=== PATIENT | male | born 1935 | race Two or more races ===

== ENCOUNTER 2024-05-14 13:46 | Inpatient (IN) | payer MEDICAID ==
[~2024-05-14] VITALS: Ht 170.2 cm; Wt 66.4 kg
[2024-05-14] MEDS ORDERED: ONDANSETRON HCL/PF 4 MG/2 ML VIAL ONE (14:39)
[2024-05-14] MEDS ORDERED: PANTOPRAZOLE 40 MG VIAL ONE (14:39)
[2024-05-14] MEDS: PANTOPRAZOLE 40 MG VIAL IV ONE (14:41)
[2024-05-14] MEDS: ONDANSETRON HCL/PF 4 MG/2 ML VIAL IVP ONE (14:53)
[2024-05-14 15:18] LABS: BASOPHILS % (AUTO) 0.4 % (0.0-2.0); EOSINOPHILS % (AUTO) 0.2 % (0.0-6.0); HEMATOCRIT 41 % (39-51); HEMOGLOBIN 13.6 g/dL (13.5-17.5); LYMPHOCYTES # (AUTO) 0.5 K/uL (0.8-4.8); LYMPHOCYTES % (AUTO) 5.4 % (20.0-44.0); MEAN CORPUSCULAR HEMOGLOBIN 32 PG (26.0-33.0); MEAN CORPUSCULAR HGB CONC 33 g/dl (31.0-36.0); MEAN CORPUSCULAR VOLUME 96 fL (80-96); MONOCYTES # (AUTO) 0.7 K/uL (0.1-1.30); MONOCYTES % (AUTO) 7.2 % (2.0-12.0); NEUTROPHILS # (AUTO) 8.6 K/uL (1.8-8.9); NEUTROPHILS % (AUTO) 86.8 % (43.0-81.0); PLATELET COUNT (AUTO) 168 K/uL (150-450); RED BLOOD CELL COUNT(AUTO) 4.29 MIL/uL (4.5-6.0); RED CELL DISTRIBUTION WIDTH 15.4 % (11.5-15.0); WHITE BLOOD COUNT (AUTO) 9.9 K/uL (4.3-11.0)
[2024-05-14 15:21] LABS: SERUM AMMONIA 8 umol/L (11-32)
[2024-05-14 15:33] LABS: INR 1.56 (0.91-1.10); PROTHROMBIN TIME 15.8 SECS (9.2-11.1)
[2024-05-14 15:35] LABS: CALCIUM, SERUM 8.6 mg/dL (8.5-10.1); CARBON DIOXIDE 27 mmol/L (21-32); CHLORIDE 101 mmol/L (98-107); CREATININE 1.6 mg/dL (0.6-1.3); GLUCOSE 118 mg/dL (74-106); POTASSIUM 4.1 mmol/L (3.5-5.1); SODIUM SERUM 136 mmol/L (136-145); UREA NITROGEN, BLOOD 26 mg/dL (7-18)
[2024-05-14 15:48] LABS: ALANINE AMINOTRANSFERASE 18 U/L (12-78); ALKALINE PHOSPHATASE 80 U/L (46-116); ASPARTATE AMINOTRANSFERASE 24 U/L (15-37); BILIRUBIN,DIRECT 0.5 mg/dL (0.0-0.2); BILIRUBIN,TOTAL 1.2 mg/dL (0.2-1.0); LIPASE 53 U/L (16-77); NT-PRO BNP 11262 pg/mL (0-125)
[2024-05-14 17:14] VITALS: BP_SYST 112; BP_SYST 150; BP_DIAS 76; TEMP 98; O2SAT 96
[2024-05-14] MEDS ORDERED: CLOP75TA15 PO (17:26)
[2024-05-14] MEDS ORDERED: ATOR20TA PO (17:26)
[2024-05-14] MEDS ORDERED: AMLO1TAB PO (17:26)
[2024-05-14] MEDS ORDERED: IRBESARTAN/HCTZ PO (17:26)
[2024-05-14] MEDS ORDERED: RIVA15TA PO (17:26)
[2024-05-14] MEDS ORDERED: ESOM40CA PO (17:26)
[2024-05-14] MEDS: FUROSEMIDE 40 MG/4 ML VIAL IV SCH (18:39)
[2024-05-14] MEDS ORDERED: DEXTROSE 50%-WATER 50 ML DISP.SYRIN IV PRN (20:00)
[2024-05-14 20:03] VITALS: BP 99/66; TEMP 98.4; O2SAT 97
[2024-05-14] MEDS: BLOOD SUGAR DIAGNOSTIC 1 EACH STRIP VI SCH (21:58)
[2024-05-14] MEDS: *INSULIN REGULAR(HUMULIN R)HUM 100 UNIT/ML VIAL SQ PRN (22:04)
[2024-05-15 00:07] VITALS: BP 108/68; TEMP 98.1; O2SAT 98
[2024-05-15 04:01] VITALS: BP 115/77; TEMP 98; O2SAT 98
[2024-05-15 06:56] LABS: BASOPHILS % (AUTO) 0.2 % (0.0-2.0); EOSINOPHILS # (AUTO) 0.1 K/uL (0.0-0.7); EOSINOPHILS % (AUTO) 1.1 % (0.0-6.0); HEMATOCRIT 38 % (39-51); LYMPHOCYTES # (AUTO) 0.5 K/uL (0.8-4.8); LYMPHOCYTES % (AUTO) 6.6 % (20.0-44.0); MEAN CORPUSCULAR HEMOGLOBIN 31 PG (26.0-33.0); MEAN CORPUSCULAR HGB CONC 34 g/dl (31.0-36.0); MEAN CORPUSCULAR VOLUME 92 fL (80-96); MONOCYTES # (AUTO) 0.6 K/uL (0.1-1.30); MONOCYTES % (AUTO) 7.8 % (2.0-12.0); NEUTROPHILS # (AUTO) 6.7 K/uL (1.8-8.9); NEUTROPHILS % (AUTO) 84.3 % (43.0-81.0); PLATELET COUNT (AUTO) 167 K/uL (150-450); RED BLOOD CELL COUNT(AUTO) 4.17 MIL/uL (4.5-6.0); RED CELL DISTRIBUTION WIDTH 15.3 % (11.5-15.0); WHITE BLOOD COUNT (AUTO) 7.9 K/uL (4.3-11.0)
[2024-05-15 07:04] LABS: CALCIUM, SERUM 8.9 mg/dL (8.5-10.1); CARBON DIOXIDE 29 mmol/L (21-32); CHLORIDE 101 mmol/L (98-107); CREATININE 1.5 mg/dL (0.6-1.3); GLUCOSE 147 mg/dL (74-106); PHOSPHORUS 3.7 mg/dL (2.5-4.9); POTASSIUM 3.9 mmol/L (3.5-5.1); SODIUM SERUM 138 mmol/L (136-145); UREA NITROGEN, BLOOD 29 mg/dL (7-18)
[2024-05-15 08:00] VITALS: BP 109/82; TEMP 97.7; O2SAT 97
[2024-05-15] MEDS: ATORVASTATIN 10 MG TABLET PO SCH (08:42)
[2024-05-15] MEDS: CLOPIDOGREL BISULFATE 75 MG TABLET PO SCH (08:42)
[2024-05-15] MEDS: PANTOPRAZOLE 40 MG TABLET.DR PO SCH (08:43)
[2024-05-15] MEDS ORDERED: ATORVASTATIN PO SCH (09:00)
[2024-05-15] MEDS ORDERED: HCTZ PO SCH (09:00)
[2024-05-15] MEDS ORDERED: IRBESARTAN PO SCH (09:00)
[2024-05-15] MEDS ORDERED: [UNRECOGNIZED DRUG - OTHER] PO SCH (09:00)
[2024-05-15] MEDS ORDERED: AMLODIPINE PO SCH (09:00)
[2024-05-15 11:37] LABS: INR 1.13 (0.91-1.10); PARTIAL THROMBOPLASTIN TIME 27.7 SEC (24.3-34.3); PROTHROMBIN TIME 11.9 SECS (9.2-11.1)
[2024-05-15 12:00] VITALS: BP 129/101; TEMP 97.3; O2SAT 97
[2024-05-15] MEDS: HEPARIN SODIUM, PORCINE 5000 UNITS/1 ML VIAL IV ONE (12:46)
[2024-05-15] MEDS: HEPARIN INFUSION/D5W 500 ML IV PRN (12:58)
[2024-05-15] MEDS: AMLODIPINE BESYLATE 5 MG TABLET PO SCH (13:30)
[2024-05-15] MEDS: LOSARTAN POTASSIUM 50 MG TABLET PO SCH (13:30)
[2024-05-15] MEDS: CLOTRIMAZOLE/BETAMETASONE DIPROPIONATE 15 GM TUBE TP SCH (13:39)
[2024-05-15 16:00] VITALS: BP 133/80; TEMP 97.9; O2SAT 98
[2024-05-15 20:00] VITALS: BP 105/73; TEMP 97.5; O2SAT 96
[2024-05-15] MEDS: INSULIN REGULAR, HUMAN 100 UNIT/ML 3 ML VIAL SQ PRN (22:04)
[2024-05-16] VITALS: BP 92/75; TEMP 98.1; O2SAT 99
[2024-05-16 04:00] VITALS: BP 103/58; TEMP 98.2; O2SAT 98
[2024-05-16 07:55] LABS: BASOPHILS % (AUTO) 0.3 % (0.0-2.0); EOSINOPHILS # (AUTO) 0.1 K/uL (0.0-0.7); EOSINOPHILS % (AUTO) 0.8 % (0.0-6.0); HEMATOCRIT 40 % (39-51); HEMOGLOBIN 13.2 g/dL (13.5-17.5); LYMPHOCYTES # (AUTO) 0.6 K/uL (0.8-4.8); LYMPHOCYTES % (AUTO) 8.6 % (20.0-44.0); MEAN CORPUSCULAR HEMOGLOBIN 31 PG (26.0-33.0); MEAN CORPUSCULAR HGB CONC 33 g/dl (31.0-36.0); MEAN CORPUSCULAR VOLUME 93 fL (80-96); MONOCYTES # (AUTO) 0.5 K/uL (0.1-1.30); MONOCYTES % (AUTO) 7.6 % (2.0-12.0); NEUTROPHILS # (AUTO) 5.8 K/uL (1.8-8.9); NEUTROPHILS % (AUTO) 82.7 % (43.0-81.0); PLATELET COUNT (AUTO) 174 K/uL (150-450); RED BLOOD CELL COUNT(AUTO) 4.29 MIL/uL (4.5-6.0); RED CELL DISTRIBUTION WIDTH 15.2 % (11.5-15.0)
[2024-05-16 08:00] VITALS: BP 109/80; TEMP 97.7; O2SAT 98
[2024-05-16 08:23] LABS: ALANINE AMINOTRANSFERASE 16 U/L (12-78); ALBUMIN 2.7 g/dL (3.4-5.0); ALKALINE PHOSPHATASE 78 U/L (46-116); ASPARTATE AMINOTRANSFERASE 17 U/L (15-37); BILIRUBIN,TOTAL 0.9 mg/dL (0.2-1.0); CALCIUM, SERUM 8.7 mg/dL (8.5-10.1); CARBON DIOXIDE 29 mmol/L (21-32); CHLORIDE 101 mmol/L (98-107); CREATININE 1.5 mg/dL (0.6-1.3); GLUCOSE 70 mg/dL (74-106); PHOSPHORUS 4.1 mg/dL (2.5-4.9); POTASSIUM 3.5 mmol/L (3.5-5.1); SODIUM SERUM 141 mmol/L (136-145); TOTAL PROTEIN, SERUM 6.8 g/dL (6.4-8.2); UREA NITROGEN, BLOOD 29 mg/dL (7-18)
[2024-05-16] MEDS: CARVEDILOL 3.125 MG TABLET PO SCH (08:40)
[2024-05-16 08:53] LABS: CREATINE KINASE, TOTAL 50 U/L (39-308)
[2024-05-16 12:00] VITALS: BP 101/64; TEMP 97.3; O2SAT 98
[2024-05-16 16:00] VITALS: BP 100/65; TEMP 98.1; O2SAT 95
[2024-05-16 20:00] VITALS: BP 100/60; TEMP 97.5; O2SAT 94
[2024-05-17] VITALS: BP 99/64; TEMP 97.4; O2SAT 99
[2024-05-17 04:00] VITALS: BP 102/73; TEMP 97.5; O2SAT 100
[2024-05-17 04:09] LABS: BASOPHILS % (AUTO) 0.7 % (0.0-2.0); EOSINOPHILS # (AUTO) 0.1 K/uL (0.0-0.7); HEMATOCRIT 36 % (39-51); LYMPHOCYTES # (AUTO) 0.6 K/uL (0.8-4.8); LYMPHOCYTES % (AUTO) 10.9 % (20.0-44.0); MEAN CORPUSCULAR HEMOGLOBIN 31 PG (26.0-33.0); MEAN CORPUSCULAR HGB CONC 33 g/dl (31.0-36.0); MEAN CORPUSCULAR VOLUME 92 fL (80-96); MONOCYTES # (AUTO) 0.5 K/uL (0.1-1.30); MONOCYTES % (AUTO) 8.6 % (2.0-12.0); NEUTROPHILS # (AUTO) 4.5 K/uL (1.8-8.9); NEUTROPHILS % (AUTO) 77.8 % (43.0-81.0); PLATELET COUNT (AUTO) 168 K/uL (150-450); RED BLOOD CELL COUNT(AUTO) 3.91 MIL/uL (4.5-6.0); RED CELL DISTRIBUTION WIDTH 14.9 % (11.5-15.0); WHITE BLOOD COUNT (AUTO) 5.7 K/uL (4.3-11.0)
[2024-05-17 04:22] LABS: CALCIUM, SERUM 8.4 mg/dL (8.5-10.1); CARBON DIOXIDE 31 mmol/L (21-32); CHLORIDE 101 mmol/L (98-107); CREATININE 1.5 mg/dL (0.6-1.3); GLUCOSE 137 mg/dL (74-106); MAGNESIUM 1.8 mg/dL (1.8-2.4); PHOSPHORUS 4.2 mg/dL (2.5-4.9); POTASSIUM 3.4 mmol/L (3.5-5.1); SODIUM SERUM 140 mmol/L (136-145); UREA NITROGEN, BLOOD 30 mg/dL (7-18)
[2024-05-17 07:07] LABS: PTH, INTACT 100 pg/mL (15-65)
[2024-05-17 08:00] VITALS: BP 136/73; TEMP 98.6; O2SAT 100
[2024-05-17 12:00] VITALS: BP 99/72; TEMP 98.1; O2SAT 100
[2024-05-17] MEDS ORDERED: ONDANSETRON HCL/PF 4 MG/2 ML VIAL IV PRN (13:00)
[2024-05-17] MEDS: POTASSIUM CHLORIDE 20 MEQ TAB.PRT.SR PO SCH (13:11)
[2024-05-17 14:07] LABS: *SPE A/G RATIO 0.7 (0.7-1.7); *SPE ALBUMIN 2.4 g/dL (2.9-4.4); *SPE ALPHA-1-GLOBULIN 0.4 g/dL (0.0-0.4); *SPE ALPHA-2-GLOBULIN 0.8 g/dL (0.4-1.0); *SPE GLOBULIN, TOTAL 3.4 g/dL (2.2-3.9); *SPE M-SPIKE Not Observed g/dL (Not Observed); *SPE PROTEIN TOTAL 5.8 g/dL (6.0-8.5); *SPEGAMMA GLOBULIN 1.2 g/dL (0.4-1.8)
[2024-05-17 16:00] VITALS: BP 98/67; TEMP 98.4; O2SAT 100
[2024-05-17] MEDS: BISMUTH SUBSALICYLATE 262 MG/15 ML BOTTLE PO PRN (16:52)
[2024-05-17] MEDS: ENSURE ENLIVE 237 ML LIQUID (VANILLA) PO SCH (18:08)
[2024-05-17] MEDS: RIVAROXABAN 15 MG TABLET PO SCH (18:15)
[2024-05-17 20:00] VITALS: BP 102/65; TEMP 97.7; O2SAT 95
[2024-05-18] VITALS: BP 107/89; TEMP 97.8; O2SAT 98
[2024-05-18 04:00] VITALS: BP 136/54; TEMP 98.1; O2SAT 98
[2024-05-18 08:00] VITALS: BP 122/84; TEMP 97.9; O2SAT 98
[2024-05-18 12:00] VITALS: BP 102/72; TEMP 97.3; O2SAT 97
== END 2024-05-18 13:35 | DRG 194 ==
LOC: ER 13:51 → TELE1 16:56
PROVIDERS: ADMIT Nurse Practitioner Acute Care; ATTEND Nurse Practitioner Acute Care
DX: I13.0 Hypertensive heart and chronic kidney disease with heart failure and stage 1 through stage 4 chronic kidney disease, or unspecified chronic kidney disease (principal); N17.0 Acute kidney failure with tubular necrosis; I26.99 Other pulmonary embolism without acute cor pulmonale; I21.A1 Myocardial infarction type 2; I27.20 Pulmonary hypertension, unspecified; B35.3 Tinea pedis; I82.813 Embolism and thrombosis of superficial veins of lower extremities, bilateral; I48.91 Unspecified atrial fibrillation; I42.9 Cardiomyopathy, unspecified; D64.9 Anemia, unspecified; E11.22 Type 2 diabetes mellitus with diabetic chronic kidney disease; E78.5 Hyperlipidemia, unspecified; N18.9 Chronic kidney disease, unspecified; I50.23 Acute on chronic systolic (congestive) heart failure; I25.10 Atherosclerotic heart disease of native coronary artery without angina pectoris; I25.2 Old myocardial infarction; L84 Corns and callosities; M89.8X9 Other specified disorders of bone, unspecified site; N32.89 Other specified disorders of bladder; N40.0 Benign prostatic hyperplasia without lower urinary tract symptoms; Z79.01 Long term (current) use of anticoagulants; J98.11 Atelectasis; Z95.0 Presence of cardiac pacemaker; Z95.1 Presence of aortocoronary bypass graft
CPT/HCPCS: 36415; 71045-TC; 76770-TC; 80048-TC; 80053-TC; 80076-TC; 82140-TC; 82550-TC; 82962-TC; 83690-TC; 83735-TC; 83880; 83970; 84100-TC; 84155; 84165; 84484-TC; 85025-TC; 85378-TC; 85610-TC; 85730-TC; 93307-TC; 93970-TC; 94799-TC; 97110-TC; 97112-TC; 97116-TC; 97530-TC; 97535-TC; A4223; G0378; J1644; J1815; J1940; J2405; J2470

== ENCOUNTER 2024-06-03 10:23 | Inpatient (IN) | payer MEDICAID ==
[~2024-06-03] VITALS: Ht 170.2 cm; Wt 57.6 kg
[~2024-06-03 10:23] MED LIST: AMLO1TAB PO; ATOR20TA PO; CLOP75TA15 PO; ESOM40CA PO; IRBESARTAN/HCTZ PO; RIVA15TA PO
[2024-06-03 11:08] LABS: BASOPHILS # (AUTO) 0.1 K/uL (0.0-0.2); BASOPHILS % (AUTO) 0.6 % (0.0-2.0); EOSINOPHILS % (AUTO) 0.1 % (0.0-6.0); HEMATOCRIT 39 % (39-51); HEMOGLOBIN 12.5 g/dL (13.5-17.5); LYMPHOCYTES # (AUTO) 0.3 K/uL (0.8-4.8); LYMPHOCYTES % (AUTO) 3.5 % (20.0-44.0); MEAN CORPUSCULAR HEMOGLOBIN 30 PG (26.0-33.0); MEAN CORPUSCULAR HGB CONC 32 g/dl (31.0-36.0); MEAN CORPUSCULAR VOLUME 94 fL (80-96); MONOCYTES # (AUTO) 0.3 K/uL (0.1-1.30); MONOCYTES % (AUTO) 3.9 % (2.0-12.0); NEUTROPHILS # (AUTO) 7.5 K/uL (1.8-8.9); NEUTROPHILS % (AUTO) 91.9 % (43.0-81.0); PLATELET COUNT (AUTO) 136 K/uL (150-450); RED BLOOD CELL COUNT(AUTO) 4.15 MIL/uL (4.5-6.0); RED CELL DISTRIBUTION WIDTH 15.5 % (11.5-15.0); WHITE BLOOD COUNT (AUTO) 8.2 K/uL (4.3-11.0)
[2024-06-03 11:36] LABS: ACETAMINOPHEN < 10 ug/ml (10-30); ALANINE AMINOTRANSFERASE 61 U/L (12-78); ALBUMIN 2.6 g/dL (3.4-5.0); ALKALINE PHOSPHATASE 111 U/L (46-116); ASPARTATE AMINOTRANSFERASE 60 U/L (15-37); BILIRUBIN,DIRECT 0.6 mg/dL (0.0-0.2); BILIRUBIN,TOTAL 1.9 mg/dL (0.2-1.0); CALCIUM, SERUM 8.8 mg/dL (8.5-10.1); CARBON DIOXIDE 34 mmol/L (21-32); CHLORIDE 121 mmol/L (98-107); GLUCOSE 120 mg/dL (74-106); TOTAL PROTEIN, SERUM 6.6 g/dL (6.4-8.2); UREA NITROGEN, BLOOD 75 mg/dL (7-18)
[2024-06-03 11:37] LABS: APPEARANCE,URINE SLIGHTLY CLOUDY (CLEAR); BILIRUBIN,URINE NEGATIVE (NEGATIVE); BLOOD, URINE 3+ Ery/uL (NEGATIVE); COLOR,URINE YELLOW (YELLOW); KETONES,URINE NEGATIVE (NEGATIVE); LEUKOCYTE ESTERASE ,URINE NEGATIVE (NEGATIVE); NITRITE, URINE POSITIVE (NEGATIVE); PH,URINE 5.5 (5.0-8.0); PROTEIN,URINE 2+ mg/dl (NEGATIVE); UGLUCOSE NEGATIVE (NEGATIVE); UROBILINOGEN,URINE 0.2 EU/dL (0.2)
[2024-06-03 11:38] LABS: RBC,URINE 21-50 /HPF (0-2)
[2024-06-03 11:38] LABS: SODIUM SERUM 162 mmol/L (136-145)
[2024-06-03 11:39] LABS: ADD URINE CULTURE YES; BACTERIA,URINE Few /HPF (None Seen); SQUAMOUS EPITHELIAL CELL,UR Moderate /HPF (None Seen); YEAST,URINE Rare /HPF (None Seen)
[2024-06-03 11:46] LABS: AMPHETAMINE, URINE NEGATIVE (NEGATIVE); BARBITURATE, URINE NEGATIVE (NEGATIVE); BENZODIAZEPINE, URINE NEGATIVE (NEGATIVE); CANNABINOID, URINE NEGATIVE (NEGATIVE); COCCAINE, URINE NEGATIVE (NEGATIVE); OPIATE, URINE NEGATIVE (NEGATIVE); PHENCYCLIDINE SCREEN,URINE NEGATIVE (NEGATIVE)
[2024-06-03 11:50] LABS: LACTIC ACID 3.5 mmol/L (0.4-2.0)
[2024-06-03 11:55] LABS: ALCOHOL, BLOOD < 3 mg/dL (0-10); SALICYLATE < 2.3 mg/dL (2.8-20.0)
[2024-06-03] MEDS: IV NS 0.9% 1,000 ML BAG IV ONE (11:57)
[2024-06-03] MEDS ORDERED: PANT40TA2 PO (13:01)
[2024-06-03] MEDS ORDERED: NA P133E RC (13:01)
[2024-06-03] MEDS ORDERED: ZINC1CAP3 PO (13:01)
[2024-06-03] MEDS ORDERED: MAGN400O6 PO (13:01)
[2024-06-03] MEDS ORDERED: ATOR40TA PO (13:01)
[2024-06-03] MEDS ORDERED: ASCO-352 PO (13:01)
[2024-06-03] MEDS ORDERED: *INS REG3 SQ (13:01)
[2024-06-03] MEDS ORDERED: FURO-144 PO (13:01)
[2024-06-03] MEDS ORDERED: LACT-47 PO (13:01)
[2024-06-03] MEDS ORDERED: MULT-213 PO (13:01)
[2024-06-03] MEDS ORDERED: ACET-868 PO ×2 (13:01)
[2024-06-03] MEDS ORDERED: ISOS10TA2 PO (13:01)
[2024-06-03] MEDS ORDERED: MEGE400O4 PO (13:01)
[2024-06-03] MEDS ORDERED: CRAN250C PO (13:01)
[2024-06-03] MEDS ORDERED: BISA10SU11 RC (13:01)
[2024-06-03] MEDS ORDERED: CARV3.12 PO (13:01)
[2024-06-03] MEDS ORDERED: AMIN30LI66 PO (13:01)
[2024-06-03] MEDS ORDERED: GLUC1KIT IM (13:01)
[2024-06-03] MEDS: CEFTRIAXONE 1GM BAG (ER ONLY) 1 GM/50 ML PIGGYBACK IV ONE (13:10)
[2024-06-03] MEDS ORDERED: ACETAMINOPHEN 325 MG TABLET PO PRN (15:30)
[2024-06-03] MEDS ORDERED: ONDANSETRON HCL/PF 4 MG/2 ML VIAL IVP PRN (15:30)
[2024-06-03 16:00] VITALS: BP 129/60; TEMP 97.3; O2SAT 95
[2024-06-03] MEDS ORDERED: DEXTROSE 50%-WATER 50 ML DISP.SYRIN IV PRN (16:00)
[2024-06-03] MEDS: ISOSORBIDE DINITRATE (10MG) 10 MG TABLET PO SCH (16:02)
[2024-06-03] MEDS: CARVEDILOL 3.125 MG TABLET PO SCH (16:02)
[2024-06-03] MEDS: MEGESTROL ACETATE SUSP 400 MG/10 ML UDC PO SCH (16:02)
[2024-06-03] MEDS: ENSURE CLEAR 237 ML LIQUID (MIX BERRY) PO SCH (17:14)
[2024-06-03] MEDS: PROSOURCE / PROSTAT (PYXIS) 30 ML UDC PO SCH (17:15)
[2024-06-03] MEDS: ASCORBIC ACID 500 MG TABLET PO SCH (17:15)
[2024-06-03] MEDS: MULTIVIT W/MINERALS 1 TAB TABLET PO SCH (17:15)
[2024-06-03] MEDS: ZINC SULFATE 220 MG CAPSULE PO SCH (17:15)
[2024-06-03] MEDS: IV D5W 1,000 ML IV PRN (17:24)
[2024-06-03] MEDS: BLOOD SUGAR DIAGNOSTIC 1 EACH STRIP IN SCH (17:24)
[2024-06-03] MEDS ORDERED: Medication Not On Formulary EA (Amino AC/Protein Hydr/Whey Pro (Liquacel Liquid Protein PO SCH (18:00)
[2024-06-03 20:00] VITALS: BP 120/73; TEMP 97.3; O2SAT 93
[2024-06-03] MEDS: ATORVASTATIN 40 MG TABLET PO SCH (22:00)
[2024-06-04] VITALS (7 sets, daily range): BP systolic 104–128; BP diastolic 69–90; TEMP 97.5–98.6; O2SAT 95–98
[2024-06-04] MEDS: PANTOPRAZOLE 40 MG TABLET.DR PO SCH (07:30)
[2024-06-04] MEDS: CLOPIDOGREL BISULFATE 75 MG TABLET PO SCH (08:01)
[2024-06-04] MEDS: RIVAROXABAN 15 MG TABLET PO SCH (08:01)
[2024-06-04 08:29] LABS: BASOPHILS % (AUTO) 0.3 % (0.0-2.0); EOSINOPHILS % (AUTO) 0.5 % (0.0-6.0); HEMATOCRIT 37 % (39-51); HEMOGLOBIN 12.1 g/dL (13.5-17.5); LYMPHOCYTES # (AUTO) 0.4 K/uL (0.8-4.8); LYMPHOCYTES % (AUTO) 4.4 % (20.0-44.0); MEAN CORPUSCULAR HEMOGLOBIN 31 PG (26.0-33.0); MEAN CORPUSCULAR HGB CONC 33 g/dl (31.0-36.0); MEAN CORPUSCULAR VOLUME 95 fL (80-96); MONOCYTES # (AUTO) 0.4 K/uL (0.1-1.30); MONOCYTES % (AUTO) 4.1 % (2.0-12.0); NEUTROPHILS # (AUTO) 8.7 K/uL (1.8-8.9); NEUTROPHILS % (AUTO) 90.7 % (43.0-81.0); PLATELET COUNT (AUTO) 88 K/uL (150-450); RED BLOOD CELL COUNT(AUTO) 3.94 MIL/uL (4.5-6.0); RED CELL DISTRIBUTION WIDTH 15.6 % (11.5-15.0); WHITE BLOOD COUNT (AUTO) 9.6 K/uL (4.3-11.0)
[2024-06-04 08:34] LABS: CALCIUM, SERUM 8.5 mg/dL (8.5-10.1); CARBON DIOXIDE 26 mmol/L (21-32); CHLORIDE 125 mmol/L (98-107); GLUCOSE 136 mg/dL (74-106); MAGNESIUM 2.7 mg/dL (1.8-2.4); PHOSPHORUS 3.1 mg/dL (2.5-4.9); POTASSIUM 3.2 mmol/L (3.5-5.1); UREA NITROGEN, BLOOD 76 mg/dL (7-18)
[2024-06-04 08:43] LABS: SODIUM SERUM 164 mmol/L (136-145)
[2024-06-04 10:00] LABS: BASOPHILS % (MANUAL) 0 % (0.0-2.0); EOSINOPHILS % (MANUAL) 1 % (0-4); LYMPHOCYTES % (MANUAL) 4 % (16-48); MONOCYTES % (MANUAL) 4 % (0-11.0); NEUTROPHILS % (MANUAL) 91 (42-76)
[2024-06-04 10:01] LABS: ANISOCYTOSIS 1+; PLATELET ESTIMATE DECREASED
[2024-06-04] MEDS: POTASSIUM CL. PREMIX PERIPHER. 50 ML IV SCH (10:48)
[2024-06-04] MEDS: THERAHONEY GEL 1.5 OZ TUBE TP SCH (11:27)
[2024-06-04] MEDS: CEFTRIAXONE 1 G in IV D5W 50 ML IV SCH (14:49)
[2024-06-04] MEDS: INSULIN REGULAR, HUMAN 100 UNIT/ML 3 ML VIAL SQ PRN (23:30)
[2024-06-05] VITALS: BP 132/86; TEMP 97.1; TEMP 97.3; O2SAT 95
[2024-06-05 04:00] VITALS: BP 130/85; TEMP 97.9; O2SAT 96
[2024-06-05 08:00] VITALS: BP 119/78; TEMP 98; O2SAT 95
[2024-06-05 08:04] LABS: BASOPHILS % (AUTO) 0.2 % (0.0-2.0); EOSINOPHILS % (AUTO) 0.3 % (0.0-6.0); HEMATOCRIT 33 % (39-51); HEMOGLOBIN 10.8 g/dL (13.5-17.5); LYMPHOCYTES # (AUTO) 0.5 K/uL (0.8-4.8); LYMPHOCYTES % (AUTO) 5.3 % (20.0-44.0); MEAN CORPUSCULAR HEMOGLOBIN 30 PG (26.0-33.0); MEAN CORPUSCULAR HGB CONC 33 g/dl (31.0-36.0); MEAN CORPUSCULAR VOLUME 91 fL (80-96); MONOCYTES # (AUTO) 0.4 K/uL (0.1-1.30); MONOCYTES % (AUTO) 4.3 % (2.0-12.0); NEUTROPHILS # (AUTO) 8.6 K/uL (1.8-8.9); NEUTROPHILS % (AUTO) 89.9 % (43.0-81.0); PLATELET COUNT (AUTO) 64 K/uL (150-450); RED CELL DISTRIBUTION WIDTH 15.6 % (11.5-15.0); WHITE BLOOD COUNT (AUTO) 9.5 K/uL (4.3-11.0)
[2024-06-05] MEDS: FREE WATER VIA TUBE FEEDING GT SCH (08:25)
[2024-06-05 08:26] LABS: ALANINE AMINOTRANSFERASE 42 U/L (12-78); ALBUMIN 2.3 g/dL (3.4-5.0); ALKALINE PHOSPHATASE 96 U/L (46-116); ASPARTATE AMINOTRANSFERASE 39 U/L (15-37); BILIRUBIN,TOTAL 2.9 mg/dL (0.2-1.0); CARBON DIOXIDE 30 mmol/L (21-32); CHLORIDE 125 mmol/L (98-107); CREATININE 2.1 mg/dL (0.6-1.3); GLUCOSE 139 mg/dL (74-106); MAGNESIUM 2.8 mg/dL (1.8-2.4); PHOSPHORUS 3.1 mg/dL (2.5-4.9); POTASSIUM 3.5 mmol/L (3.5-5.1); TOTAL PROTEIN, SERUM 5.7 g/dL (6.4-8.2); UREA NITROGEN, BLOOD 76 mg/dL (7-18)
[2024-06-05 08:27] LABS: SODIUM SERUM 163 mmol/L (136-145)
[2024-06-05] MEDS: CLOTRIMAZOLE/BETAMETASONE DIPROPIONATE 15 GM TUBE TP SCH (08:27)
[2024-06-05 08:40] LABS: BASOPHILS % (MANUAL) 0 % (0.0-2.0); EOSINOPHILS % (MANUAL) 1 % (0-4); LYMPHOCYTES % (MANUAL) 4 % (16-48); MONOCYTES % (MANUAL) 3 % (0-11.0); NEUTROPHILS % (MANUAL) 92 (42-76); PLATELET ESTIMATE DECREASED
[2024-06-05 11:47] LABS: ABG BASE EXCESS 2.9 mmol/L (-2.0-3.0); ABG OXYGEN SATURATION 95.6 % (94.0-98.0); ABG PCO2 28.7 mmHg (35.0-48.0); ABG PH 7.552 (7.350-7.450); ABG PO2 80.1 mmHg (83.0-108.0); ABG TOTAL HEMOGLOBIN 10.8 G/dL (13.5-17.5); COHb 0.3 % (0.5-1.5); MetHb 0.4 % (0.0-1.5); O2Hb 94.9 % (94.0-97.0); SITE, ABG RIGHT BRACHIAL
[2024-06-05 12:00] VITALS: BP 111/70; TEMP 97.6; O2SAT 92
[2024-06-05 16:00] VITALS: BP 112/77; TEMP 97.5; O2SAT 91
[2024-06-05] MEDS ORDERED: CARVEDILOL 3.125 MG TABLET GT SCH (16:36)
[2024-06-05] MEDS ORDERED: MEGESTROL ACETATE SUSP 400 MG/10 ML UDC GT SCH (16:37)
[2024-06-05] MEDS ORDERED: ACETAMINOPHEN 650 MG/20.3 ML UDC GT PRN (17:00)
[2024-06-05] MEDS: ASCORBIC ACID 500 MG TABLET GT SCH (17:14)
[2024-06-05] MEDS: ZINC SULFATE 220 MG CAPSULE GT SCH (17:14)
[2024-06-05] MEDS: MULTIVIT W/MINERALS 1 TAB TABLET GT SCH (17:15)
[2024-06-05] MEDS: PROSOURCE / PROSTAT (PYXIS) 30 ML UDC GT SCH (17:15)
[2024-06-05] MEDS: GLUCERNA 1.2 1,000 ML BOTTLE GT PRN (17:27)
[2024-06-05] MEDS ORDERED: GLUCERNA 1.2 1,000 ML BOTTLE NG PRN (17:30)
[2024-06-05 20:00] VITALS: BP 132/94; TEMP 96.6; O2SAT 94
[2024-06-05] MEDS: HEPARIN SODIUM, PORCINE 5000 UNITS/1 ML VIAL SQ SCH (20:43)
[2024-06-05] MEDS: ATORVASTATIN 40 MG TABLET GT SCH (21:03)
[2024-06-06] VITALS: BP 112/62; TEMP 97.5; O2SAT 94
[2024-06-06 04:00] VITALS: BP 101/64; TEMP 97.3; O2SAT 94
[2024-06-06 08:00] VITALS: BP 113/82; TEMP 97.5; O2SAT 92
[2024-06-06] MEDS: Z GUARD REMEDY 4 OZ OINT TP PRN (08:49)
[2024-06-06] MEDS: CLOPIDOGREL BISULFATE 75 MG TABLET GT SCH (09:07)
[2024-06-06] MEDS: MEGESTROL ACETATE SUSP 400 MG/10 ML UDC GT SCH (09:07)
[2024-06-06] MEDS: CARVEDILOL 3.125 MG TABLET GT SCH (09:08)
[2024-06-06] MEDS: ISOSORBIDE DINITRATE (10MG) 10 MG TABLET GT SCH (09:08)
[2024-06-06] MEDS: PANTOPRAZOLE 40 MG/PACK PACK GT SCH (09:11)
[2024-06-06 10:29] LABS: BASOPHILS % (AUTO) 0.1 % (0.0-2.0); EOSINOPHILS # (AUTO) 0.1 K/uL (0.0-0.7); EOSINOPHILS % (AUTO) 0.7 % (0.0-6.0); HEMATOCRIT 33 % (39-51); LYMPHOCYTES # (AUTO) 0.4 K/uL (0.8-4.8); LYMPHOCYTES % (AUTO) 3.2 % (20.0-44.0); MEAN CORPUSCULAR HEMOGLOBIN 30 PG (26.0-33.0); MEAN CORPUSCULAR HGB CONC 33 g/dl (31.0-36.0); MEAN CORPUSCULAR VOLUME 90 fL (80-96); MONOCYTES # (AUTO) 0.4 K/uL (0.1-1.30); MONOCYTES % (AUTO) 3.2 % (2.0-12.0); NEUTROPHILS # (AUTO) 10.2 K/uL (1.8-8.9); NEUTROPHILS % (AUTO) 92.8 % (43.0-81.0); PLATELET COUNT (AUTO) 61 K/uL (150-450); RED CELL DISTRIBUTION WIDTH 15.9 % (11.5-15.0)
[2024-06-06 10:58] LABS: LYMPHOCYTES % (MANUAL) 4 % (16-48); MONOCYTES % (MANUAL) 2 % (0-11.0); NEUTROPHILS % (MANUAL) 94 (42-76); PLATELET ESTIMATE DECREASED
[2024-06-06 12:00] VITALS: BP 109/85; TEMP 97.6; O2SAT 91
[2024-06-06 16:00] VITALS: BP 134/79; TEMP 97.6; O2SAT 92
[2024-06-06 20:00] VITALS: BP 112/64; TEMP 97.5; O2SAT 96
[2024-06-07] VITALS: BP 119/70; TEMP 97.5; O2SAT 98
[2024-06-07 04:00] VITALS: BP 115/75; TEMP 97; O2SAT 94
[2024-06-07 04:11] VITALS: O2SAT 96
[2024-06-07 08:00] VITALS: BP 123/83; TEMP 98.2; O2SAT 91
[2024-06-07 12:00] VITALS: BP 103/79; TEMP 97.7; O2SAT 91
[2024-06-07 14:09] LABS: BASOPHILS % (AUTO) 0.1 % (0.0-2.0); EOSINOPHILS % (AUTO) 0.2 % (0.0-6.0); HEMATOCRIT 34 % (39-51); HEMOGLOBIN 11.1 g/dL (13.5-17.5); LYMPHOCYTES # (AUTO) 0.2 K/uL (0.8-4.8); LYMPHOCYTES % (AUTO) 1.8 % (20.0-44.0); MEAN CORPUSCULAR HEMOGLOBIN 30 PG (26.0-33.0); MEAN CORPUSCULAR HGB CONC 33 g/dl (31.0-36.0); MEAN CORPUSCULAR VOLUME 90 fL (80-96); MONOCYTES # (AUTO) 0.2 K/uL (0.1-1.30); MONOCYTES % (AUTO) 1.5 % (2.0-12.0); NEUTROPHILS # (AUTO) 10.7 K/uL (1.8-8.9); NEUTROPHILS % (AUTO) 96.4 % (43.0-81.0); PLATELET COUNT (AUTO) 52 K/uL (150-450); RED BLOOD CELL COUNT(AUTO) 3.77 MIL/uL (4.5-6.0); RED CELL DISTRIBUTION WIDTH 15.4 % (11.5-15.0); WHITE BLOOD COUNT (AUTO) 11.1 K/uL (4.3-11.0)
[2024-06-07 16:00] VITALS: BP 111/82; TEMP 97.8; O2SAT 91
[2024-06-07 16:14] LABS: ALANINE AMINOTRANSFERASE 33 U/L (12-78); ALBUMIN 2.2 g/dL (3.4-5.0); ALKALINE PHOSPHATASE 101 U/L (46-116); ASPARTATE AMINOTRANSFERASE 32 U/L (15-37); CALCIUM, SERUM 7.8 mg/dL (8.5-10.1); CARBON DIOXIDE 27 mmol/L (21-32); CHLORIDE 121 mmol/L (98-107); CREATININE 1.5 mg/dL (0.6-1.3); GLUCOSE 142 mg/dL (74-106); MAGNESIUM 2.5 mg/dL (1.8-2.4); PHOSPHORUS 3.4 mg/dL (2.5-4.9); SODIUM SERUM 154 mmol/L (136-145); TOTAL PROTEIN, SERUM 5.8 g/dL (6.4-8.2); UREA NITROGEN, BLOOD 64 mg/dL (7-18)
[2024-06-07 19:22] LABS: LYMPHOCYTES % (MANUAL) 2 % (16-48); MONOCYTES % (MANUAL) 1 % (0-11.0); NEUTROPHILS % (MANUAL) 97 (42-76)
[2024-06-07 19:23] LABS: ANISOCYTOSIS 2+; HYPOCHROMASIA 1+; PLATELET ESTIMATE DECREASED
== END 2024-06-07 17:38 | DRG 426 ==
LOC: ER 10:29 → TELE1 13:16 → TELE-TD 14:48 → TELE1 06-04 09:52
PROVIDERS: ADMIT Nurse Practitioner Family; ATTEND Internal Medicine
DX: E87.0 Hyperosmolality and hypernatremia (principal); N17.0 Acute kidney failure with tubular necrosis; G93.41 Metabolic encephalopathy; I50.23 Acute on chronic systolic (congestive) heart failure; D69.6 Thrombocytopenia, unspecified; E87.20 Acidosis, unspecified; L89.156 Pressure-induced deep tissue damage of sacral region; I27.20 Pulmonary hypertension, unspecified; I42.9 Cardiomyopathy, unspecified; E86.0 Dehydration; I13.0 Hypertensive heart and chronic kidney disease with heart failure and stage 1 through stage 4 chronic kidney disease, or unspecified chronic kidney disease; T68.XXXA Hypothermia, initial encounter; N39.0 Urinary tract infection, site not specified; B35.3 Tinea pedis; I48.91 Unspecified atrial fibrillation; N18.9 Chronic kidney disease, unspecified; E11.22 Type 2 diabetes mellitus with diabetic chronic kidney disease; E11.40 Type 2 diabetes mellitus with diabetic neuropathy, unspecified; E78.5 Hyperlipidemia, unspecified; I25.10 Atherosclerotic heart disease of native coronary artery without angina pectoris; I25.2 Old myocardial infarction; N40.0 Benign prostatic hyperplasia without lower urinary tract symptoms; Z79.4 Long term (current) use of insulin; Z86.718 Personal history of other venous thrombosis and embolism; Z95.1 Presence of aortocoronary bypass graft; Z79.01 Long term (current) use of anticoagulants; N13.8 Other obstructive and reflux uropathy; N40.1 Benign prostatic hyperplasia with lower urinary tract symptoms; Z95.810 Presence of automatic (implantable) cardiac defibrillator; I47.20 Ventricular tachycardia, unspecified; Z66 Do not resuscitate
CPT/HCPCS: 36415; 36600; 70450-TC; 71045-TC; 71250-TC; 80048-TC; 80053-TC; 80076-TC; 81001; 82803-TC; 82962-TC; 83605-TC; 83735-TC; 83880; 84100-TC; 84443-TC; 84484-TC; 85025-TC; 87040-TC; 87086-TC; 92526; 92611-TC; 94799-TC; 97110-TC; 97112-TC; 97530-TC; A4223; G0378; G0480; J0696; J1644; J1815; J3480; J7030; J7050; J7060; J7070